=== PATIENT | male | born 1980 | race Two or more races ===

== ENCOUNTER 2019-02-04 13:15 | Emergency (ER) | payer BC, OTHER ==
[~2019-02-04] VITALS: Ht 162.6 cm; Wt 82.0 kg
[~2019-02-04 13:15] MED LIST: SULF1TAB24 PO
[2019-02-04 13:18] VITALS: BP 150/95
[2019-02-04] MEDS ORDERED: ACYCLOVIR 800 MG TABLET PO ONE (13:30)
[2019-02-04] MEDS ORDERED: FLUORESCEIN OPHTHALMIC 1 MG STRIP ONE ×2 (13:53→14:41)
[2019-02-04] MEDS ORDERED: PROPARACAINE OPHTH 0.5%, 15ML ONE (13:53)
[2019-02-04] MEDS ORDERED: FLUORESCEIN OPHTHALMIC 1 MG STRIP EACHEYE ONE (14:00)
[2019-02-04] MEDS ORDERED: PROPARACAINE OPHTH 0.5%, 15ML EACHEYE ONE (14:00)
--- NOTE | 2019-02-04 14:03 | NUR ---
Eye exam w/ slit lamp performed by PA. Call out to opthalmologist.
--- NOTE | 2019-02-04 14:29 | NUR ---
LESIONS AND ERYTHEMA NOTED RIGHT SIDE OF FACE WITH PAIN TO RIGHT EYE. AFTER EYE EXAM BY PA, PT MOVED TO RM 20
--- NOTE | 2019-02-04 14:42 | NUR ---
OPTHOMOLOGIST AT BEDSIDE PREPARING FOR EYE EXAM
== END 2019-02-04 16:00 | disposition home or self-care (01) ==
LOC: ED 14:40
DX: B02.9 Zoster without complications (principal); H16.9 Unspecified keratitis
CPT/HCPCS: 99283

== ENCOUNTER 2019-08-13 06:28 | Day surgery (SDC) | payer OTHER ==
[~2019-08-13] VITALS: Ht 162.6 cm; Wt 85.5 kg
[2019-08-13] MEDS ORDERED: LACTATED RINGERS 1,000 ML IV SCH (07:01)
[2019-08-13] MEDS ORDERED: BUPIVACAINE/PF 0.5% ONE (07:12)
[2019-08-13] MEDS ORDERED: EPINEPHRINE 1 MG/ML, 1ML ONE (07:12)
[2019-08-13 07:27] VITALS: BP 117/88
[2019-08-13] MEDS ORDERED: ACETAMINOPHEN 500 MG TABLET PO ONE (08:00)
[2019-08-13] MEDS ORDERED: GABAPENTIN 300 MG CAPSULE PO ONE (08:00)
[2019-08-13] MEDS ORDERED: MEPERIDINE/PF 25MG/ML,1ML IVPush PRN (08:30)
[2019-08-13] MEDS ORDERED: LABETALOL 5MG/ML, 20ML IV PRN (08:30)
[2019-08-13] MEDS ORDERED: HYDROcodone/APAP 7.5-325MG/15ML UDC PO PRN (08:30)
[2019-08-13] MEDS ORDERED: ONDANSETRON 2MG/ML, 2ML IV PRN (08:30)
[2019-08-13] MEDS ORDERED: FENTANYL PF 100 MCG/2ML IV PRN (08:30)
[2019-08-13] MEDS ORDERED: PROMETHAZINE 25 MG/ML, 1ML IV PRN (08:30)
[2019-08-13] MEDS ORDERED: HYDROmorphone 2 MG/ML, 1ML IVPush PRN (08:30)
[2019-08-13] MEDS ORDERED: EPHEDRINE 50 MG/ML, 1ML IVPush PRN (08:30)
[2019-08-13] MEDS ORDERED: hydrALAzine 20 MG/ML, 1ML IV PRN (08:30)
[2019-08-13] MEDS ORDERED: MIDAZOLAM 1 MG/ML, 2ML ONE (10:07)
[2019-08-13] MEDS ORDERED: FENTANYL PF 100 MCG/2ML ONE (10:07)
[2019-08-13] MEDS ORDERED: GLYCOPYRROLATE 0.2MG/1ML, 5ML ONE (10:09)
[2019-08-13] MEDS ORDERED: DEXAMETHASONE 4 MG/ML, 1ML ONE (10:09)
[2019-08-13] MEDS ORDERED: ROCURONIUM 10MG/ML,5ML ONE (10:09)
[2019-08-13] MEDS ORDERED: NEOSTIGMINE 1 MG/ML, 10ML ONE (10:09)
[2019-08-13] MEDS ORDERED: CEFAZOLIN 1,000 MG ONE (10:09)
[2019-08-13] MEDS ORDERED: SUCCINYLCHOLINE 20 MG/ML, 10ML ONE (10:09)
[2019-08-13] MEDS ORDERED: PROPOFOL 10 MG/ML, 20ML ONE (10:09)
[2019-08-13] MEDS ORDERED: ONDANSETRON 2MG/ML, 2ML ONE (10:09)
[2019-08-13] MEDS ORDERED: SODIUM CHLORIDE 0.9% PF 10ML ONE (10:12)
[2019-08-13] MEDS ORDERED: KETOROLAC 30 MG/1 ML ONE (10:25)
== END 2019-08-13 13:30 | disposition home or self-care (01) ==
LOC: OUT 06:28
PROVIDERS: ATTEND Surgery Vascular Surgery
DX: K42.0 Umbilical hernia with obstruction, without gangrene (principal); Z83.3 Family history of diabetes mellitus; Z80.9 Family history of malignant neoplasm, unspecified
CPT/HCPCS: 49587; J0171; J0330; J0690; J1100; J1885; J2250; J2405; J2704; J2710; J3010; J7120